=== PATIENT | female | born 1975 | race Caucasian/White ===

== ENCOUNTER 2023-10-18 17:43 | Emergency (ER) | payer OTHER ==
[~2023-10-18] VITALS: Ht 165.1 cm; Wt 90.0 kg
[2023-10-18 17:51] VITALS: O2SAT 100
[2023-10-18] MEDS: ACETAMINOPHEN 325MG TABLET PO ONE (19:44)
[2023-10-18 20:09] LABS: CHLORIDE 106 mEq/L (98-107); POTASSIUM 3.4 mEq/L (3.5-5.1); SODIUM 139 mEq/L (136-145)
[2023-10-18 20:10] LABS: CALCIUM 8.9 mg/dL (8.7-10.4); CARBON DIOXIDE 26 mEq/L (21-32)
[2023-10-18 20:14] LABS: BASOPHILS % 1.1 % (0.0-2.0); DIFFERENTIAL COMMENT 0; EOSINOPHILS % 2.7 % (0.0-5.0); HEMATOCRIT. 30.4 % (36.0-48.0); HEMOGLOBIN. 9.4 g/dL (12.0-16.0); LYMPHOCYTES % 16.9 % (20.0-50.0); MEAN CORPUSCULAR HEMOGLOBIN 23.6 pg (28.0-32.0); MEAN CORPUSCULAR HGB CONC 30.9 g/dL (31.0-37.0); MEAN CORPUSCULAR VOLUME 76.4 fL (81.0-99.0); MEAN PLATELET VOLUME 7.8 fl (7.4-10.4); MONOCYTES % 7.9 % (2.0-8.0); NEUTROPHILS % 71.4 % (40.0-76.0); PLATELET 464 x1000/uL (130-400); RED BLOOD CELL COUNT 3.98 mill/uL (4.2-5.4); RED CELL DISTRIBUTION WIDTH 17.4 % (11.6-14.6); WHITE BLOOD COUNT 12.4 x1000/uL (4.5-11.0)
[2023-10-18 20:15] LABS: CREATININE 0.7 mg/dL (0.6-1.0); GLUCOSE 113 mg/dL (70-105); UREA NITROGEN BLOOD 13 mg/dL (9-23)
[2023-10-18 20:17] LABS: ALANINE AMINOTRANSFERASE 38 IU/L (10-49); ALBUMIN 4.4 g/dL (3.2-4.8); ASPARTATE AMINOTRANSFERASE 24 IU/L (<34); BILIRUBIN TOTAL 0.3 mg/dL (0.1-1.0); PROTEIN TOTAL 7.5 g/dL (6.0-8.3)
[2023-10-18 20:33] LABS: HCG SCREEN NEGATIVE
[2023-10-18] MEDS: IBUPROFEN 600MG TABLET PO ONE (21:45)
[2023-10-18 22:32] VITALS: BP 136/88; PULSE 84; RESP 18; TEMP 98.2
[2023-10-18] MEDS ORDERED: IOHEXOL-300 100 ML BOTTLE ONE (23:18)
== END 2023-10-18 22:31 | disposition home or self-care (01) ==
LOC: ER 17:43
DX: S20.212A Contusion of left front wall of thorax, initial encounter (principal); R10.31 Right lower quadrant pain; M54.2 Cervicalgia; V49.59XA Passenger injured in collision with other motor vehicles in traffic accident, initial encounter; Y93.89 Activity, other specified; Y92.89 Other specified places as the place of occurrence of the external cause; Y99.8 Other external cause status
CPT/HCPCS: 80053; 84703; 85025; 36415; 71045; 71260; 72125; 74177; 99291; Q9967; Z7610